=== PATIENT | female | born 1960 | race Two or more races ===

== ENCOUNTER 2019-05-10 05:43 | Day surgery (SDC) | payer OTHER ==
[2019-05-10] MEDS ORDERED: EPINEPHRINE (1:1000) 1 MG/ML AMPUL ONE ×2 (06:57→07:28)
[2019-05-10] MEDS ORDERED: FENTANYL PF 250MCG/5ML AMPUL ONE (07:35)
[2019-05-10] MEDS ORDERED: MIDAZOLAM HCL 2 MG/2ML VIAL ONE (07:35)
[2019-05-10] MEDS ORDERED: ROCURONIUM BROMIDE 50 MG/5 ML ONE (07:35)
[2019-05-10] MEDS ORDERED: BUPIVACAINE 0.5 % PF 150 MG/30 ML VIAL ONE (08:24)
[2019-05-10] MEDS ORDERED: methylPREDNISolone ACETATE 80 MG/ML VIAL ONE (08:25)
[2019-05-10] MEDS ORDERED: HYDROCODONE/APAP 10/325MG 1 EA TABLET ONE (10:08)
[2019-05-10] MEDS ORDERED: ONDANSETRON HCL/PF 4 MG/2 ML VIAL ONE (11:11)
== END 2019-05-10 11:20 | disposition home or self-care (01) ==
LOC: DS 05:43
PROVIDERS: ATTEND Specialist
DX: M75.42 Impingement syndrome of left shoulder (principal); M06.9 Rheumatoid arthritis, unspecified; Z98.891 History of uterine scar from previous surgery; Z90.49 Acquired absence of other specified parts of digestive tract; Z98.890 Other specified postprocedural states; M65.812 Other synovitis and tenosynovitis, left shoulder; M75.82 Other shoulder lesions, left shoulder
CPT/HCPCS: 88304-TC; 88311-TC; A4217; A4565; J0171; J0690; J1040; J2250; J2405; J2704; J2710; J2765; J3010; J3490